=== PATIENT | male | born 1955 | race Caucasian/White ===

== ENCOUNTER 2017-01-06 17:45 | Emergency (ER) | payer OTHER, MEDICARE ==
[~2017-01-06] VITALS: Ht 175.3 cm; Wt 69.0 kg
[~2017-01-06 17:45] MED LIST: HYDR-3533 PO; SULF-154 PO
[2017-01-06 17:47] VITALS: BP 156/97; PULSE 66; RESP 16; TEMP 98.2; O2SAT 99
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
[2017-01-06] MEDS ORDERED: IBUPROFEN 800 MG TAB PO ONE (18:30)
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
[2017-01-06] MEDS ORDERED: IBUP800T23 PO (19:12)
== END 2017-01-06 19:15 | disposition home or self-care (01) ==
LOC: PHEFT 17:45
DX: M25.511 Pain in right shoulder (principal); G44.319 Acute post-traumatic headache, not intractable; F17.210 Nicotine dependence, cigarettes, uncomplicated; V43.52XA Car driver injured in collision with other type car in traffic accident, initial encounter; Y99.8 Other external cause status
CPT/HCPCS: 72125; 73030

== ENCOUNTER 2017-01-13 18:58 | Emergency (ER) | payer MEDICARE ==
[~2017-01-13] VITALS: Ht 175.3 cm; Wt 70.0 kg
[~2017-01-13 18:58] MED LIST changes: -HYDR-3533 PO; +IBUP800T23 PO; -SULF-154 PO
[2017-01-13 19:12] VITALS: BP 130/77; PULSE 96; RESP 18; O2SAT 96
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
[2017-01-13] MEDS ORDERED: traMADol HCL 50 MG TAB PO ONE (20:00)
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
== END 2017-01-13 21:31 | disposition home or self-care (01) ==
LOC: PHEFT 18:58
DX: S63.501A Unspecified sprain of right wrist, initial encounter (principal); R42 Dizziness and giddiness; F17.200 Nicotine dependence, unspecified, uncomplicated; Z87.39 Personal history of other diseases of the musculoskeletal system and connective tissue; W07.XXXA Fall from chair, initial encounter
CPT/HCPCS: 73110; 99283

== ENCOUNTER 2017-09-01 06:31 | Emergency (ER) | payer MEDICARE ==
[~2017-09-01] VITALS: Ht 175.3 cm; Wt 68.5 kg
[2017-09-01 06:32] VITALS: BP 150/83; PULSE 85; RESP 16; TEMP 98; O2SAT 96
[2017-09-01] MEDS ORDERED: KETOROLAC TROMETHAMINE 60 MG/2 ML (IM) VIAL IM ONE (07:15)
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
--- NOTE | 2017-09-01 08:07 | RADRPT ---
EXAM DATE/TIME: 09/01/2017 07:49 [facility] COMPARISON: WRIST RIGHT COMPLETE ([id number]), January 13, 2017, 19:51. INDICATIONS : Right wrist pain no known injury MEDICAL HISTORY : None. SURGICAL HISTORY : None. ENCOUNTER: Initial ACUITY: 2 days PAIN SCORE: 7/10 LOCATION: Right entire wrist FINDINGS: AP and lateral views of the right wrist demonstrate no fracture or dislocation. Mineralization is wit hin normal limits. There is a chronic mineralization in the region of the triangular fibrocartilage c omplex in the region of the scapholunate ligament. Arterial vascular calcification is present in the distal forearm anteriorly. No soft tissue abnormality or radiopaque foreign body is identified. CONCLUSION: Stable examination of the right wrist. No acute abnormality is identified. Calin Figueroa MD on September 01, 2017 at 8:04 Board Certified Radiologist. This report was verified electronically.
[2017-09-01 08:24] VITALS: RESP 18
[2017-09-01] MEDS ORDERED: BACT800T5 PO (08:31)
[2017-09-01] MEDS ORDERED: IBUP-232 PO (08:31)
== END 2017-09-01 08:48 | disposition home or self-care (01) ==
LOC: PHED 06:31
DX: M25.531 Pain in right wrist (principal); F17.200 Nicotine dependence, unspecified, uncomplicated
CPT/HCPCS: 73100; 96372; 99284; J1885